=== PATIENT | female | born 1985 | race Caucasian/White ===

== ENCOUNTER 2023-01-15 18:43 | Outpatient (CLI) | payer OTHER | END 2023-01-15 20:56 | disposition home or self-care (01) | LOC: NST 18:43 | PROVIDERS: ATTEND Obstetrics & Gynecology Gynecology | DX: Z34.83 Encounter for supervision of other normal pregnancy, third trimester (principal) ==

== ENCOUNTER 2023-02-01 06:50 | Inpatient (IN) | payer OTHER ==
[~2023-02-01] VITALS: Ht 170.2 cm; Wt 66.7 kg
[2023-02-01] MEDS ORDERED: PRENATAL VITAM1 EAC4 PO (08:39)
== END 2023-02-03 12:22 | disposition home or self-care (01) | DRG 807 ==
LOC: LDR 06:50 → OB/GYN 21:02
PROVIDERS: ADMIT Obstetrics & Gynecology Gynecology; ATTEND Obstetrics & Gynecology Gynecology
PROC: 10E0XZZ Delivery of Products of Conception, External Approach (ICD-10-PCS; principal; 2023-02-01)
PROC: 0HQ9XZZ Repair Perineum Skin, External Approach (ICD-10-PCS; 2023-02-01)
PROC: 4A1HXCZ Monitoring of Products of Conception, Cardiac Rate, External Approach (ICD-10-PCS; 2023-02-01)
DX: O70.0 First degree perineal laceration during delivery (principal); Z37.0 Single live birth; Z3A.39 39 weeks gestation of pregnancy; Z20.822 Contact with and (suspected) exposure to COVID-19

== ENCOUNTER 2023-11-18 09:16 | Outpatient (CLI) | payer OTHER ==
[~2023-11-18 09:16] MED LIST: PRENATAL VITAM1 EAC4 PO
[2023-11-18 10:50] LABS: HEMATOCRIT 39.1 % (36.0-45.00); HEMOGLOBIN 13.2 g/dL (12.0-15.00); MEAN CORPUSCULAR HEMOGLOBIN 30.7 pg (27.00-32.0); MEAN CORPUSCULAR HGB CONC 33.7 g/dl (32.0-36.0); PLATELET COUNT 253 K/uL (150-450); RED BLOOD COUNT 4.29 M/uL (4.00-6.00); RED CELL DISTRIBUTION WIDTH 13.1 % (11.5-14.5)
[2023-11-18 11:25] LABS: URINE APPEARANCE Clear; URINE BILIRRUBIN Negative (NEGATIVE); URINE BLOOD Negative; URINE COLOR Yellow; URINE GLUCOSE Negative (NEGATIVE); URINE LEUKOCYTE Small; URINE NITRATE Negative; URINE PROTEIN Negative (NEGATIVE); URINE UROBILINOGEN 0.2 E.U./dl
[2023-11-18 11:26] LABS: ALBUMIN 4.1 gm/dL (3.4-5.0); BILIRUBIN TOTAL 0.51 mg/dL (0.3-1.2); CALCIUM 9.3 mg/dL (8.5-10.1); CHOL HDL RATIO 2.8 (0-5.0); CREATININE SERUM 0.7 mg/dL (0.55-1.02); GFR 94.15; POTASSIUM 4.49 mEq/L (3.5-5.1); TOTAL PROTEIN 8.1 gm/dL (6.4-8.2)
[2023-11-18 11:29] LABS: URINE BACTERIA 1325.3 uL (0.0-1933); URINE EPITHELIAL CELLS 36.1 uL (0.0-38.8); URINE WBC 60.6 uL (0.0-23.2)
[2023-11-18 11:37] LABS: URINE RBC 1.2 uL (0.0-20.8)
[2023-11-18 12:00] LABS: TSH 0.551 uIU/mL (0.358-3.74)
== END 2023-11-18 09:17 | disposition home or self-care (01) ==
LOC: LAB 09:16
DX: E03.9 Hypothyroidism, unspecified (principal); E55.9 Vitamin D deficiency, unspecified; E11.9 Type 2 diabetes mellitus without complications; E78.9 Disorder of lipoprotein metabolism, unspecified; D64.9 Anemia, unspecified